=== PATIENT | male | born 1980 | race American Indian/Alaskan Native ===

== ENCOUNTER 2022-03-14 21:18 | Emergency (ER) | payer OTHER ==
[~2022-03-14] VITALS: Ht 177.8 cm; Wt 81.6 kg
[2022-03-14] MEDS ORDERED: ANALPRAM HC 2.530 GM RECTAL (22:09)
== END 2022-03-14 22:17 | disposition home or self-care (01) ==
LOC: ER 21:18
DX: K64.9 Unspecified hemorrhoids (principal)